=== PATIENT | female | born 1985 | race Native Hawaiian/Other Pacific Islander ===

== ENCOUNTER 2023-08-03 12:55 | Emergency (ER) | payer SELFPAY ==
[~2023-08-03] VITALS: Ht 152.4 cm; Wt 76.2 kg
[2023-08-03 13:27] LABS: BASOPHILS % (AUTO) 1 % (0-10); EOSINOPHILS % (AUTO) 0 % (0-10); HEMATOCRIT 36 % (35-52); HEMOGLOBIN 11.9 g/dL (11.5-16.0); LYMPHOCYTES # (AUTO) 1.6 10^3/uL (1.0-4.0); LYMPHOCYTES % (AUTO) 25 % (12-44); MEAN CORPUSCULAR HEMOGLOBIN 28 pg (25-34); MEAN CORPUSCULAR HGB CONC 33 g/dL (32-36); MEAN CORPUSCULAR VOLUME 86 fL (80-99); MEAN PLATELET VOLUME 8.9 fL (9.0-12.2); MONOCYTES # (AUTO) 0.5 10^3/uL (0.0-1.0); MONOCYTES % (AUTO) 8 % (0-12); NEUTROPHILS # (AUTO) 4.3 10^3/uL (1.8-7.8); NEUTROPHILS % (AUTO) 67 % (42-75); PLATELET COUNT 247 10^3/uL (130-400); WHITE BLOOD COUNT 6.5 10^3/uL (4.3-11.0)
[2023-08-03 13:32] LABS: ALBUMIN 3.7 GM/DL (3.2-4.5); POTASSIUM 3.5 MMOL/L (3.6-5.0)
[2023-08-03 13:33] LABS: CALCIUM 8.7 MG/DL (8.5-10.1)
[2023-08-03 13:35] LABS: TOTAL PROTEIN 7.3 GM/DL (6.4-8.2)
[2023-08-03 13:37] LABS: BILIRUBIN,TOTAL 0.3 MG/DL (0.1-1.0)
[2023-08-03 13:39] LABS: CREATININE SERUM 0.78 MG/DL (0.60-1.30)
--- NOTE | 2023-08-03 13:39 | ED Neurological Problem ---
General Chief Complaint: Dizziness/Syncope Stated Complaint: DIZZY Nursing Triage Note: PT AMB TO [facility] 6 WITH CC OF DIZZINESS, NAUSEA AND VOMITING X 1 WEEK. PT REPORTS BLURRED VISION THIS AM. DENIES MORRIS, WEAKNESS AND PAIN AT THIS TIME. PT [id number]&[id number] Source: patient Exam Limitations: no limitations (KERI HOLT APRN) History of Present Illness Date Seen by Provider: Aug 03, 2023 Time Seen by Provider: 13:21 Initial Comments 38-year-old female presents to the ER with complaint of dizziness for the past week. She states that today she felt like she was almost going to pass out. She describes the dizziness as the room is spinning. States that movement of her head and walking makes the dizziness worse. Reports she has also been vomiting for the last week. Reports approximately 2-3 episodes of vomiting to day. Denies diarrhea. Denies abdominal pain. Denies fevers, headache, dysuria, vaginal bleeding and discharge. Patient thinks she may be . Last menstrual cycle was May 21. She is . (KERI HOLT APRN) Allergies and Home Medications Allergies Coded Allergies: No Known Drug Allergies (Unverified , 08/03/23) Patient Home Medication List Home Medication List Reviewed: Yes (KERI HOLT APRN) Cephalexin (Cephalexin) 500 Mg Tablet, 500 MG PO TID Prescribed by: Keri Iraheta on 08/03/23 1443 Review of Systems Review of Systems Constitutional: see HPI (KERI HOLT APRN) Past Qptmdaa-Vjrcws-Jsthyb Hx Patient Social History Tobacco Use?: No Substance use?: No Alcohol Use?: No (KERI HOLT APRN) Past Medical History Surgery/Hospitalization HX: DENIES Last Menstrual Period: Jun 08, 2023 (KERI HOLT APRN) Physical Exam Vital Signs Vital Signs - First Documented 08/03/23 13:10 Temp 36.4 Pulse 65 Resp 16 B/P (MAP) 105/55 (72) Pulse Ox 100 O2 Delivery Room Air (ELMER EL MD) Vital Signs Capillary Refill : Less Than 3 Seconds (KERI HOLT APRN) Height, Weight, BMI Height: '" Weight: lbs. oz. 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, no motor/sensory deficits, alert, normal mood/affect Crainal Nerves: normal hearing, normal speech, PERRL Motor/Sensory: no motor deficit, no sensory deficit Skin: normal color, warm/dry (KERI HOLT APRN) Progress/Results/Core Measures Results/Orders Lab Results Laboratory Tests Test 08/03/23 13:15 08/03/23 13:24 Range/Units White Blood Count 6.5 4.3-11.0 10^3/uL Red Blood Count 4.20 3.80-5.11 10^6/uL Hemoglobin 11.9 11.5-16.0 g/dL Hematocrit 36 35-52 % Mean Corpuscular Volume 86 80-99 fL Mean Corpuscular Hemoglobin 28 25-34 pg Mean Corpuscular Hemoglobin Concent 33 32-36 g/dL Red Cell Distribution Width 12.6 10.0-14.5 % Platelet Count 247 130-400 10^3/uL Mean Platelet Volume 8.9 L 9.0-12.2 fL Immature Granulocyte % (Auto) 0 % Neutrophils (%) (Auto) 67 42-75 % Lymphocytes (%) (Auto) 25 12-44 % Monocytes (%) (Auto) 8 0-12 % Eosinophils (%) (Auto) 0 0-10 % Basophils (%) (Auto) 1 0-10 % Neutrophils # (Auto) 4.3 1.8-7.8 10^3/uL Lymphocytes # (Auto) 1.6 1.0-4.0 10^3/uL Monocytes # (Auto) 0.5 0.0-1.0 10^3/uL Eosinophils # (Auto) 0.0 0.0-0.3 10^3/uL Basophils # (Auto) 0.0 0.0-0.1 10^3/uL Immature Granulocyte # (Auto) 0.0 0.0-0.1 10^3/uL Sodium Level 135 135-145 MMOL/L Potassium Level 3.5 L 3.6-5.0 MMOL/L Chloride Level 108 H 98-107 MMOL/L Carbon Dioxide Level 21 21-32 MMOL/L Anion Gap 6 5-14 MMOL/L Blood Urea Nitrogen 8 7-18 MG/DL Creatinine 0.78 0.60-1.30 MG/DL Estimat Glomerular Filtration Rate 101 BUN/Creatinine Ratio 10 Glucose Level 83 70-105 MG/DL Calcium Level 8.7 8.5-10.1 MG/DL Corrected Calcium 8.9 8.5-10.1 MG/DL Total Bilirubin 0.3 0.1-1.0 MG/DL Aspartate Amino Transf (AST/SGOT) 15 5-34 U/L Alanine Aminotransferase (ALT/SGPT) 12 0-55 U/L Alkaline Phosphatase 53 40-136 U/L C-Reactive Protein High Sensitivity 0.50 0.00-0.50 MG/DL Total Protein 7.3 6.4-8.2 GM/DL Albumin 3.7 3.2-4.5 GM/DL Human Chorionic Gonadotropin, Quant 70481 H <5 MIU/ML Urine Color YELLOW Urine Clarity CLEAR Urine pH 6.5 5-9 Urine Specific [place] <=1.005 1.016-1.022 Urine Protein NEGATIVE NEGATIVE Urine Glucose (UA) NEGATIVE NEGATIVE Urine Ketones NEGATIVE NEGATIVE Urine Nitrite NEGATIVE NEGATIVE Urine Bilirubin NEGATIVE NEGATIVE Urine Urobilinogen 0.2 < = 1.0 MG/DL Urine Leukocyte Esterase TRACE H NEGATIVE Urine RBC (Auto) TRACE-I H NEGATIVE Urine RBC RARE /HPF Urine WBC 2-5 /HPF Urine Squamous Epithelial Cells 2-5 /HPF Urine Crystals NONE /LPF Urine Bacteria FEW H /HPF Urine Casts NONE /LPF Urine Mucus NEGATIVE /LPF Urine Culture Indicated YES (ELMER EL MD) Micro Results Microbiology 08/03/23 Urine Culture - Final, Complete Gram Pos Mixed Bacterial Radha (ELMER EL MD) Vital Signs/I&O 08/03/23 08/03/23 13:10 15:17 Temp 36.4 Pulse 65 60 Resp 16 16 B/P (MAP) 105/55 (72) 104/60 Pulse Ox 100 100 O2 Delivery Room Air Room Air (ELMER EL MD) Blood Pressure Mean: 72 Progress Progress Note : Progress Note Patient seen and evaluated, resting comfortably in bed, no acute distress. Based on exam and symptoms, work-up initiated including CBC, CMP, CRP, UA, urine . Bedside urine was positive. hCG quantitative added on. IV fluids and Zofran ordered. 1438 Labs reviewed. CBC grossly normal. CMP shows slightly decreased potassium 3.5, slightly elevated chloride 108. CRP normal. hCG is 74,427. Urinalysis shows trace leukocytes, trace RBCs, 0-2 WBCs, 2-5 squamous epithelial cells, few bacteria. Due to will go ahead and treat for urinary tract infection. Patient reevaluated, reports that her dizziness has improved after Zofran and IV fluids. Results discussed with patient. Patient instructed to follow-up with RN WOUND. I will provide the phone numbers to the [facility], Dr. Vallejo, and Dr. Walton. Patient instructed to start taking a with folic acid. Will discharge after IV fluids are completed. Discharge instructions and return precautions provided. (KERI HOLT APRN) Departure Impression Primary Impression: Dizziness Additional Impressions: Urinary tract infection Disposition: 01 HOME, SELF-CARE Condition: Stable Departure-Patient Inst. Referrals: [facility]/AUTUMN YANEZ VICTORIA A DO Patient Instructions: Vertigo (a Type of Dizziness) (DC) Add. Discharge Instructions: Complete full course of antibiotic as prescribed. Get a that contains 400 mcg of folic acid [id number] and start taking daily. Follow-up with an RN WOUND of your choice, I have provided the phone number to the [facility], Dr. Vallejo, and Dr. Walton. Return for abdominal pain, vaginal bleeding, or any other new, concerning, or worsening symptoms. All discharge instructions reviewed with patient and/or family. Voiced understanding. Scripts Cephalexin (Cephalexin) 500 Mg Tablet 500 MG PO TID for 5 Days, #15 TAB 0 Refills Prov: KERI HOLT APRN 08/03/23 ATTENDING PHYSICIAN NOTE: I was physically present as attending physician in the emergency department during the care of this patient, but I was not directly involved in the decision making or delivery of care for this patient. (ELMER EL MD) KERI HOLT APRN Aug 03, 2023 13:39 ELMER EL MD Aug 05, 2023 07:27
[2023-08-03 13:40] LABS: CLARITY,URINE CLEAR; COLOR,URINE YELLOW
[2023-08-03 13:41] LABS: BACTERIA,URINE FEW /HPF; BILIRUBIN,URINE NEGATIVE (NEGATIVE); GLUCOSE, URINE (UA) NEGATIVE (NEGATIVE); KETONES,URINE NEGATIVE (NEGATIVE); LEUKOCYTE ESTERASE ,URINE TRACE (NEGATIVE); NITRITE,URINE NEGATIVE (NEGATIVE); PH,URINE 6.5 (5-9); PROTEIN,URINE NEGATIVE (NEGATIVE); RBC,URINE RARE /HPF
[2023-08-03] MEDS ORDERED: ONDANSETRON INJECTION 4 MG/2 ML (SDV) IVP ONE (13:45)
[2023-08-03] MEDS ORDERED: NS IV 1000 ML 1,000 ML IV SCH (13:45)
[2023-08-03] MEDS ORDERED: CEPH500T PO (14:43)
[2023-08-03 15:17] VITALS: BP 104/60
== END 2023-08-03 15:17 | disposition home or self-care (01) ==
LOC: ER 13:01
DX: O23.40 Unspecified infection of urinary tract in pregnancy, unspecified trimester (principal); N39.0 Urinary tract infection, site not specified; Z3A.00 Weeks of gestation of pregnancy not specified
CPT/HCPCS: 36415; 80053; 81000; 84702; 84703; 85025; 86141; 87088; 96361; 96374